=== PATIENT | male | born 1945 | race Caucasian/White ===

== ENCOUNTER → 2018-01-04 | Outpatient (CLI) | payer BC ==
--- NOTE | 2018-01-04 12:05 | RAD ---
EXAM: Left lower extremity venous Doppler sonogram. HISTORY: Swelling. TECHNIQUE: Ruelas scale and color Doppler sonographic evaluation of the left lower extremity veins with spectral waveform analysis was performed. FINDINGS: There is normal color flow, normal compressibility and there are normal spectral waveforms in the common femoral, superficial femoral, popliteal, posterior tibial and greater saphenous veins. There is no suspicious finding at the site of reported palpable pain within the calf. IMPRESSION: No Doppler evidence of lower extremity deep venous thrombosis. Electronically signed by: Loan Berry MD (01/04/2018 12:02 PM) [place] [id number]
== END | disposition home or self-care (01) ==
LOC: US 09:55
PROVIDERS: ATTEND Family Medicine
DX: M79.605 Pain in left leg (principal); R22.42 Localized swelling, mass and lump, left lower limb
CPT/HCPCS: 93971